=== PATIENT | female | born 1955 | race Caucasian/White ===

== ENCOUNTER 2017-12-02 01:15 | Inpatient (IN) | payer OTHER ==
[2017-12-02] VITALS (11 sets, daily range): BP systolic 126–145; BP diastolic 76–96; PULSE 54–94; TEMP 36.5–36.7; O2SAT 92–99; BMI 38.3
[~2017-12-02] VITALS: Ht 149.9 cm; Wt 84.1 kg
[2017-12-02] MEDS ORDERED: ASPI-435 PO (01:56)
[2017-12-02] MEDS ORDERED: ATOR-26 PO (01:57)
[2017-12-02] MEDS ORDERED: CHOL1TAB46 PO (01:57)
[2017-12-02] MEDS ORDERED: LISI-729 PO (01:58)
[2017-12-02] MEDS ORDERED: GLIM4TAB2 PO (01:58)
[2017-12-02] MEDS ORDERED: PRLSR20 PO (01:59)
[2017-12-02] MEDS ORDERED: METF1TAB53 PO (01:59)
[2017-12-02] MEDS ORDERED: B COCAP3 PO (02:03)
[2017-12-02] MEDS ORDERED: INSU1INJ41 SQ (02:03)
[2017-12-02] MEDS ORDERED: MAGN1TAB16 PO (02:03)
[2017-12-02] MEDS ORDERED: PROCHLORPERAZINE INJ 5 MG in SYRINGE 4 ML IV PRN (02:15)
[2017-12-02] MEDS ORDERED: TRAMADOL HCL 50 MG TAB PO PRN (02:15)
[2017-12-02] MEDS ORDERED: NITROGLYCERIN 0.4 MG SL PER TAB CHARGE SL PRN (02:15)
[2017-12-02] MEDS ORDERED: ACETAMINOPHEN 325 MG TAB PO PRN (02:15)
[2017-12-02] MEDS ORDERED: GLUCAGON FOR INJ 1 MG VIAL SQ PRN (02:15)
[2017-12-02] MEDS ORDERED: DEXTROSE 50% 50 ML SYR IV PRN (02:15)
[2017-12-02] MEDS ORDERED: GLUCOSE 40% GEL 15 GM TUBE PO PRN (02:15)
[2017-12-02] MEDS ORDERED: PHARMACIST DISCHARGE MED REC CONSULT PRN (02:15)
[2017-12-02] MEDS ORDERED: GLUCOSE 10 TABS/TUBE PO PRN (02:15)
[2017-12-02 02:27] LABS: HEMATOCRIT 41.6 % (37-47); HEMOGLOBIN 13.9 g/dL (12.0-16.0); MEAN CELL VOLUME 94.1 fL (80-100); MEAN CORPUSCULAR HEMOGLOBIN 31.4 pg (25-34); MEAN CORPUSCULAR HGB CONC 33.4 g/dl (32-36); MEAN PLATELET VOLUME 10.9 fL (7.4-10.4); PLATELET COUNT 281 K/uL (130-400); RED CELL DISTRIBUTION WIDTH CV 12.5 % (11.5-14.5); RED CELL DISTRIBUTION WIDTH SD 42.7 fL (36.4-46.3); WHITE BLOOD COUNT 8.86 K/uL (4.8-10.8)
[2017-12-02 02:36] LABS: PTT PATIENT 24.2 SECONDS (21.0-31.0)
[2017-12-02 02:41] LABS: CREATININE 1.09 mg/dl (0.60-1.20)
[2017-12-02 02:42] LABS: CALCIUM 9.8 mg/dl (8.5-10.1)
[2017-12-02] MEDS ORDERED: SODIUM CHLORIDE 0.9% 1000ML 1,000 ML IV ONE (02:45)
[2017-12-02 02:55] LABS: BASO % 0.2 %; BASO ABS # 0.02 K/uL (0-0.2); EOS % 1.8 %; EOS ABS # 0.16 K/uL (0-0.5); IG# 0.04 K/uL (0.00-0.02); LYMPH % 23.9 %; LYMPH ABS # 2.12 K/uL (1.2-3.4); MONO % 6.8 %; NEUT % 66.8 %; NEUT ABS # 5.92 K/uL (1.4-6.5)
[2017-12-02] MEDS ORDERED: INSULIN ASPART 100 UNITS/ML 3 ML PEN SC ONE (03:00)
[2017-12-02] MEDS ORDERED: INSULIN GLARGINE SOLOSTAR 100 UNITS/ML 3 ML PEN SC ONE ×2 (03:00→07:50)
[2017-12-02] MEDS ORDERED: CLOPIDOGREL BISULFATE 75 MG TAB PO ONE (03:00)
--- NOTE | 2017-12-02 03:05 | HISTORY & PHYSICAL EXAMINATION ---
DATE OF ADMISSION: 12/02/2017 PRIMARY CARE PHYSICIAN: Dr. Phillips. HISTORY OF PRESENT ILLNESS: History obtained from patient, and records. Patient is a fair historian. Medical history significant for hypertension, hyperlipidemia, DM2 insulin requiring, hx atrophic kidney right, mitral valve prolapse as per records, endometrial cancer status post surgery, chronic diarrhea, fatty liver disease as per records, atrophic right kidney as per records Last night around 8:00 p.m., patient had trouble talking, getting words out, some slurring as per . Patient also trying to figure out how to use her blood glucose monitor. Home BSG 200s. No chest pain, no shortness of breath, generalized headache symptoms different from migraine. Patient denies bladder symptoms. Patient brought to [facility]. Given ASA. Stroke alert called. Patient was not a candidate for TPA as per [facility] telestroke neurologist as per ER provider an NIH score of 1 and improving symptoms. Unable to transfer to tertiary center due to bed availability. Patient transferred to [facility] for Neurology services. MEDICAL HISTORY: As above. SURGERIES: She has had a hysterectomy, knee surgery, cholecystectomy, tonsillectomy, adenectomy, appendectomy. urologic procedures, bilateral tubal ligation, hernia repair. HOME MEDICATIONS: Include aspirin, atorvastatin, Cholecalciferol, glimepiride, lisinopril, omeprazole, vitamin B12, metformin, Soliqua. ALLERGIES: No known drug allergies. FAMILY HISTORY: Diabetes. PERSONAL AND SOCIAL HISTORY: Nonsmoker. No chronic intake of alcoholic beverages. Homemaker. REVIEW OF SYSTEMS: As per HPI. All 10 systems reviewed. All other ROS negative. PHYSICAL EXAMINATION: VITAL SIGNS: Blood pressure noted to be 130/80, pulse rate 78, RR 18, temperature 36.6, sats 98 on room air. GENERAL: Noted to be obese, comfortable, oriented, intermittently slow speech. SKIN: Normal, warm. HEENT: [place] palpebral conjunctivae. No ptosis. Dry buccal mucosa. NECK: Supple. No tenderness. CHEST: Clear to auscultation. No tenderness. HEART: Regular rate and rhythm. No murmur. ABDOMEN: Some distension, nontender. EXTREMITIES: No edema. No gross deformity. No tenderness. NEUROLOGIC: Coherent. No gross focality except for intermittent slow speech. Gait and stance not assessed, LABORATORY DATA: From [facility] December 01 hemoglobin was 15.3, hematocrit 45, white cell count 9.4. platelets 319. Sodium 135, potassium 4.2, chloride 98, CO2 28, BUN 22, creatinine 1.33, glucose was 211, calcium 10.4, AST 19, ALT 32, alkaline phosphatase 101. EKG as per my interpretation, no ischemia. CT head, no acute pathology, small vessel ischemic disease. ASSESSMENT: 1. Transient aphasia/apraxia symptoms Significant improvement from onset of symptoms last night Differentials include : Transient ischemic attack ? ASA failure Complicated migraine given headache symptoms hepatic encephalopathy, history of NAFLD. 2. HTN, slightly elevated 3. Hyperlipidemia on statin therapy 4. DM2, insulin requiring, unknown baseline blood sugars elevated at home as per patient 5. ARF, unknown duration History of right atrophic kidney 2 to infection as per patient account. 6. Hx uterine cancer sp surgery 7. Chronic diarrhea possible IBS PLAN: Observation PCU, neuro checks. Plavix for now for secondary stroke prevention until stroke definitely ruled out. Continue statin. MRI/MRA of the brain. Check lipid profile. May need additional stroke workup pending MRI results. Neurology consult RE transient aphasia, transient apraxia Check ammonia level. Permissive hypertension for now until stroke definitely ruled out Baseline UA, monitor creatinine response IV fluids, hold home RINA inhibitor until baseline established basal insulin, ISS BG goal 140-180. Check hemoglobin A1c. PT OT eval DVT prophylaxis, Lovenox subQ. Full code. Patient's requesting updates from providers. Mr. Rafi Parks at [phone]. MTDD
[2017-12-02 03:07] LABS: INR 0.9 (0.9-1.1)
[2017-12-02] MEDS ORDERED: PNEUMOCOCCAL ADMINISTRATION CHARGE ONE (05:30)
[2017-12-02] MEDS ORDERED: PNEUMOCOCCAL POLYSACCHARIDES 25 MCG/0.5 ML VIAL/SYR IM. ONE (05:30)
[2017-12-02] MEDS ORDERED: IV FLUIDS COMPLETED PRN (05:30)
[2017-12-02] MEDS ORDERED: HEPARIN SOD 5000 UNIT/0.5 ML CARP SQ SCH (06:00)
[2017-12-02 06:50] LABS: HEMOGLOBIN A1C 14.7 % (4.5-5.6)
[2017-12-02] MEDS: ATORVASTATIN 40 MG TAB PO SCH (08:33)
[2017-12-02] MEDS: PANTOprazole SOD 40 MG TAB PO SCH (08:33)
[2017-12-02] MEDS: ENOXAPARIN 40 MG/0.4 ML SYR SQ SCH (08:34)
[2017-12-02] MEDS: INSULIN ASPART 100 UNITS/ML 3 ML PEN SC SCH ×4 (08:37→21:00)
[2017-12-02] MEDS ORDERED: ASPIRIN 81 MG ECTAB PO ONE (09:30)
--- NOTE | 2017-12-02 09:45 | DIAGNOSTIC IMAGING REPORT ---
MRA HEAD WITHOUT CONTRAST HISTORY: 62 years-old Female Stroke - Attention to [place] acute strokelike symptoms with slurred speech COMPARISON: MRI brain of same day TECHNIQUE: MRA of the head was obtained without IV contrast utilizing 3-D [id number] sequencing and MIP reformats. All measurements were obtained according to NASCET criteria. FINDINGS: The bilateral internal carotid arteries are widely patent. The bilateral anterior and middle cerebral arteries are also widely patent and within normal limits. The anterior communicating artery is unremarkable. The bilateral vertebral arteries are patent. The basilar artery is patent and within normal limits. origin of the right posterior cerebral artery. Bilateral posterior cerebral arteries are widely patent. IMPRESSION: No aneurysm, dissection, high-grade stenosis or proximal branch occlusion. The above report was generated using voice recognition software. It may contain grammatical, syntax or spelling errors. Electronically signed by: Alvaro Concepcion M.D. 12/02/2017 9:44 AM Dictated Date/Time: 12/02/2017 9:40 AM
--- NOTE | 2017-12-02 10:05 | DIAGNOSTIC IMAGING REPORT ---
BRAIN WITHOUT CONTRAST HISTORY: 62 years-old Female Stroke acute strokelike symptoms COMPARISON: MRA of the head of same day TECHNIQUE: Multiplanar multisequence MRI of the brain was obtained without contrast. FINDINGS: The large [id number] industrial locomotive operator localizer images demonstrate no gross abnormality. There are 4 mm foci of cortically based restricted diffusion involving the posterior right frontal lobe as seen on images 17 and 18 of series 4 with intermediate signal on the ADC map suggesting acute or subacute lacunar infarctions. There is mildly increased T2 signal within this region as seen on image 18 series 5. There is no acute intracranial hemorrhage, midline shift, abnormal extra-axial collections, intracranial mass or hydrocephalus. There are a few scattered areas of mildly increased T2/FLAIR signal within the subcortical white matter of the cerebral hemispheres bilaterally suggesting minimal chronic microvascular ischemic changes. The midline structures including the corpus callosum, brainstem, optic chiasm, pituitary and pineal glands appear unremarkable the sagittal T1 series. No cerebellar tonsillar herniation. Degenerative changes of the cervical spine. Mastoid air cells are clear. Paranasal sinuses are also clear. Major flow voids at the level of the skull base appear patent. Orbits are unremarkable. Scalp, covering and soft tissues are within normal limits. IMPRESSION: 1. There are two 4 mm foci of restricted diffusion with mildly increased T2/FLAIR signal involving the posterior right frontal lobe suggesting acute to subacute lacunar infarctions. 2. No intracranial hemorrhage, significant mass effect or midline shift. The above report was generated using voice recognition software. It may contain grammatical, syntax or spelling errors. Electronically signed by: Alvaro Concepcion M.D. 12/02/2017 10:04 AM Dictated Date/Time: 12/02/2017 9:55 AM
--- NOTE | 2017-12-02 14:25 | Neurology Consultation ---
Neurology Consultation Date of Consultation: Dec 02, 2017. Attending Physician: Leonardo Bourgeois MD Primary Care Physician: Kassie Phillips MD Reason for Consultation: CVA History of Present Illness Source: patient, family, spouse Aleah is a 62 year old female with PMH HTN, DL, DM2 on insulin, atrophic kidney right, mitral valve prolapse, endometrial CA post surgery, chronic diarrhea, fatty liver disease. Around 8:00pm last night she started having difficulty with her words, and some slurring of speech. She checked her blood glucose and it was 200. She was taken to [facility] and given aspirin a stroke alert was called but she was not a candidate because the symptoms were resolving. NIH score of 1. They could not transfer her to a tertiary center due to bed availability so she was transferred to [facility]. Her states by the time she was at [facility] her symptoms were resolved. The only thing at this point he is noticing is that she is tired. denies CP, SOB, abdominal pain, one sided weakness, numbness tingling, swallowing issues, falls, vision changes, tinnitus or hearing loss. She was not compliant with her medications she was prescribed aspirin but didn't take it on a regular basis. Social History Smoking Status: Never smoker Smokeless Tobacco Use: No Alcohol Use: none Drug Use: none Marital Status: Housing Status: lives with family Allergies Coded Allergies: No Known Allergies (Unverified , 12/02/17) Current Inpatient Medications Current Inpatient Medications Medications (Trade) Dose Ordered Sig/Lam Route Start Time Stop Time Status Last Admin Dose Admin Sodium Chloride 1,000 ml @ 75 mls/hr [id number] ONCE IV 12/02/17 02:45 12/02/17 16:04 12/02/17 03:13 75 MLS/HR Acetaminophen (Tylenol Tab) 325 mg Q6H PRN PO 12/02/17 02:15 01/01/18 02:14 Nitroglycerin (Nitrostat Tab) 0.4 mg UD PRN SL 12/02/17 02:15 01/01/18 02:14 Insulin Aspart (novoLOG ASPART) SLIDING SCALE If C... ACHS SC 12/02/17 07:00 01/01/18 06:59 12/02/17 08:37 5 UNITS Glucose (Glucose 40% Gel) 15-30 GRAMS 15 GRAMS... UD PRN PO 12/02/17 02:15 01/01/18 02:14 Glucose (Glucose Chew Tab) 4-8 Tablets 4 Tabl... UD PRN PO 12/02/17 02:15 01/01/18 02:14 Dextrose (Dextrose 50% 50ML Syringe) 25-50ML OF 50% DW IV FOR... UD PRN IV 12/02/17 02:15 01/01/18 02:14 Glucagon (Glucagon Inj) 1 mg UD PRN SQ 12/02/17 02:15 01/01/18 02:14 Clopidogrel Bisulfate (plAVix TAB) 75 mg QAM PO 12/03/17 09:00 01/02/18 08:59 Miscellaneous Information (Pharmacist Discharge Med Rec Consult) 1 ea UD PRN N/A 12/02/17 02:15 01/01/18 02:14 Atorvastatin Calcium (Lipitor Tab) 80 mg DAILY PO 12/02/17 09:00 01/01/18 08:59 12/02/17 08:33 80 MG Pantoprazole Sodium (Protonix Tab) 40 mg QAM PO 12/02/17 09:00 01/01/18 08:59 12/02/17 08:33 40 MG Prochlorperazine Edisylate 5 mg/ Syringe 5 ml @ 5 mls/min Q6H PRN IV 12/02/17 02:15 01/01/18 02:14 Tramadol HCl (Ultram Tab) 25 mg Q6H PRN PO 12/02/17 02:15 01/01/18 02:14 12/02/17 03:13 25 MG Enoxaparin Sodium (Lovenox Inj) 40 mg QAM SQ 12/02/17 09:00 01/01/18 08:59 12/02/17 08:34 40 MG Miscellaneous (Iv Fluids Completed) 1 ea PRN PRN N/A 12/02/17 05:30 12/02/18 05:29 Insulin Glargine (Lantus Solostar Pen) 40 units DAILY SC 12/03/17 09:00 01/02/18 08:59 Aspirin (Ecotrin Tab) 81 mg DAILY PO 12/03/17 09:00 01/02/18 08:59 Physical Exam Vital Signs (Past 24 Hrs): Date Time Temp Pulse Resp B/P (MAP) Pulse Ox O2 Delivery O2 Flow Rate FiO2 12/02/17 12:15 36.7 66 18 139/81 (100) 92 Room Air 12/02/17 12:00 99 Room Air 12/02/17 08:34 36.7 76 20 130/85 (100) 94 Room Air 12/02/17 08:00 99 Room Air 12/02/17 04:09 36.7 94 17 129/79 (96) 95 Room Air 12/02/17 04:00 99 Room Air 12/02/17 01:14 36.6 77 16 145/96 (112) 99 Room Air 12/02/17 01:04 36.6 77 18 145/96 99 Room Air Physical Exam: Constitutional: appearance nourished, healthy and normal Ears, Nose, Mouth and Throat: mucous membranes moist, no injection and skin normal, eyes normal Cardiovascular: normal S-1 and S-2 and regular rate and rhythm Respiratory: clear to auscultation (CTA) and no rales, rhonchi or wheeze Musculoskeletal: no peripheral edema and good distal pulses Skin: no stigmata of neurocutaneous disease noted and normal and intact Eyes: extraocular muscles intact (EOMI) and pupils equal, round and reactive to light (PERRL) NEUROLOGIC EXAMINATION: Mental status: Alert and interactive Oriented to full date and location, 2018, [facility], no ifs ands or buts, sticks out tongue, closes eyes, point to ceiling with right hand Oriented to person Speech fluent with no evidence of aphasia Cranial Nerves smile and eye brow raise symmetric, tongue midline Reflexes: Deep tendon reflexes were symmetrical and graded 2/5. Plantar responses were flexor. Sensory: cool touch and vibration Coordination: Romberg absent Gait/Stance: Posture normal. Gait normal: with steady with steps, base, turning, heel and toe walking and tandem gait. Motor: Negative for pronator drift of out stretched arms with eyes closed. Strength: biceps triceps hand fish conservationist, bilaterally 5/5 hip flex plantar flex ext 5/5 Laboratory Results Past 24 Hours: 12/02/17 02:05 Red Blood Count 4.42, Mean Corpuscular Volume 94.1, Mean Corpuscular Hemoglobin 31.4, Mean Corpuscular Hemoglobin Concent 33.4, Mean Platelet Volume 10.9, Neutrophils (%) (Auto) 66.8, Lymphocytes (%) (Auto) 23.9, Monocytes (%) (Auto) 6.8, Eosinophils (%) (Auto) 1.8, Basophils (%) (Auto) 0.2, Neutrophils # (Auto) 5.92, Lymphocytes # (Auto) 2.12, Monocytes # (Auto) 0.60, Eosinophils # (Auto) 0.16, Basophils # (Auto) 0.02 12/02/17 02:05 Test 12/02/17 02:05 12/02/17 02:06 12/02/17 02:09 12/02/17 02:18 White Blood Count 8.86 K/uL (4.8-10.8) Red Blood Count 4.42 M/uL (4.2-5.4) Hemoglobin 13.9 g/dL (12.0-16.0) Hematocrit 41.6 % (37-47) Mean Corpuscular Volume 94.1 fL (80-100) Mean Corpuscular Hemoglobin 31.4 pg (25-34) Mean Corpuscular Hemoglobin Concent 33.4 g/dl (32-36) Platelet Count 281 K/uL (130-400) Mean Platelet Volume 10.9 fL (7.4-10.4) Neutrophils (%) (Auto) 66.8 % Lymphocytes (%) (Auto) 23.9 % Monocytes (%) (Auto) 6.8 % Eosinophils (%) (Auto) 1.8 % Basophils (%) (Auto) 0.2 % Neutrophils # (Auto) 5.92 K/uL (1.4-6.5) Lymphocytes # (Auto) 2.12 K/uL (1.2-3.4) Monocytes # (Auto) 0.60 K/uL (0.11-0.59) Eosinophils # (Auto) 0.16 K/uL (0-0.5) Basophils # (Auto) 0.02 K/uL (0-0.2) RDW Standard Deviation 42.7 fL (36.4-46.3) RDW Coefficient of Variation 12.5 % (11.5-14.5) Immature Granulocyte % (Auto) 0.5 % Immature Granulocyte # (Auto) 0.04 K/uL (0.00-0.02) Activated Partial Thromboplast Time 24.2 SECONDS (21.0-31.0) Partial Thromboplastin Ratio 0.9 Anion Gap 7.0 mmol/L (3-11) Est Creatinine Clear Calc Drug Dose 52.3 ml/min Estimated GFR () 63.9 Estimated GFR (Non- 55.1 BUN/Creatinine Ratio 26.2 (10-20) Calcium Level 9.8 mg/dl (8.5-10.1) Magnesium Level 1.9 mg/dl (1.8-2.4) Ammonia 14.0 umol/L (11-32) Triglycerides Level 410 mg/dl (0-150) Cholesterol Level 266 mg/dl (0-200) HDL Cholesterol 45 mg/dl LDL Cholesterol, Calculated mg/dl VLDL Cholesterol, Calculated mg/dl Cholesterol/HDL Ratio 5.9 Thyroid Stimulating Hormone (TSH) 1.430 uIu/ml (0.300-4.500) Ethyl Alcohol mg/dL < 3.0 mg/dl (0-3) Estimated Average Glucose 375 mg/dl Hemoglobin A1c 14.7 % (4.5-5.6) Prothrombin Time 9.5 SECONDS (9.0-12.0) Prothromb Time International Ratio 0.9 (0.9-1.1) Test 12/02/17 11:12 Bedside Glucose 113 mg/dl (70-90) Imaging MRI brain combo- There are two 4 mm foci of restricted diffusion with mildly increased T2/FLAIR signal involving the posterior right frontal lobe suggesting acute to subacute lacunar infarctions. No intracranial hemorrhage, significant mass effect or midline shift. MRA brain-No aneurysm, dissection, high-grade stenosis or proximal branch occlusion. Impression 62 year old female with PMH PMH HTN, DL, DM2 on insulin, atrophic kidney right, mitral valve prolapse, endometrial CA post surgery, chronic diarrhea, fatty liver disease. non complaint on medications- 2-4 mm foci posterior right frontal lobe stroke Plan 1. MRI - acute 2-4 mm stroke 2. start aspirin 81 mg plavix 75 mg x 3 months then aspirin for lifetime 3. must be compliant with medications 4. HTN, DL, DM optimize LDL < 70 currently >400 5. PT/OT speech -discharge needs -does not appear to have any current issues 6. TTE with bubble study and carotid doppler ordered 7. 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 Agree with above, consider ziopatch as outpt, but likely this is small vessel, NANCY Marrero MD
--- NOTE | 2017-12-02 16:39 | DIAGNOSTIC IMAGING REPORT ---
CAROTID DOPPLER NECK ART HISTORY: Mental status change ischemic event COMPARISON: None. TECHNIQUE: Real-time, grayscale, and color Doppler sonography of the carotid arteries was performed. Imaging reviewed in the transverse and longitudinal planes. All measurements were calculated based on NASCET criteria. FINDINGS: Antegrade flow is seen in the bilateral vertebral arteries. The brachial pressures are hemodynamically similar. The peak systolic velocity within the right ICA is 76. The right systolic ratio is 1.1. The peak systolic velocity within the left ICA is 86. The left systolic ratio is 1.0. IMPRESSION: No hemodynamically significant stenosis seen within the carotid arteries. The above report was generated using voice recognition software. It may contain grammatical, syntax or spelling errors. Electronically signed by: Solo Mendoza M.D. 12/02/2017 4:38 PM Dictated Date/Time: 12/02/2017 4:37 PM
--- NOTE | 2017-12-02 17:27 | ECHOCARDIOGRAM REPORT ---
*NOTICE TO RECEIVING DEMOCRAT AGENCY This information is strictly Confidential and protected under [place] law. [place] law prohibits you from making any further disclosure of this information unless further disclosure is expressly permitted by the written consent of the person to whom it pertains or is authorized by law. A general authorization for the release of medical or other information is not sufficient for this purpose. Hospital accepts no responsibility if the information is made available to any other person, INCLUDING THE PATIENT. Interpretation Summary * Name: PK MAY Study Date: 12/02/2017 02:45 PM BP: 139/81 mmHg * Patient Location: .2T\S\S237\S\1 HR: 66 * : 1955 (M/d/yyyy) Gender: Female Height: 59 in * Age: 62 yrs Ethnicity: CA Weight: 189 lb * Ordering Physician: Lisa Rios * Referring Physician: No Doctor, Assigned * Performed By: [facility] * * Reason For Study: Source of cerebral disturbance * BSA: 1.8 m2 * -- Conclusions -- * The left ventricle is normal in size. * There is mild concentric left ventricular hypertrophy. * Left ventricular systolic function is normal. * The left ventricular wall motion is normal. * Ejection Fraction = 60-65%. * Aortic valve sclerosis mild, without significant aortic valvular stenosis. * Mild aortic root dilatation. * Lipomatous hypertrophy of the interatrial septum is noted. * The interatrial septum is intact with no evidence for an atrial septal defect. * Injection of contrast documented no interatrial shunt. Procedure Details * A complete two-dimensional transthoracic echocardiogram was performed (2D, M-mode, Doppler and color flow Doppler). * A saline contrast injection was performed to assess for cardiac shunting. * The injection was performed through an intravenous line in the right arm. * The attending nurse who injected the saline contrast was Artis Humphreys RN. * A total of 30 cc of agitated saline was given. Left Ventricle * The left ventricle is normal in size. * There is mild concentric left ventricular hypertrophy. * Ejection Fraction = 60-65%. * Left ventricular systolic function is normal. * The left ventricular wall motion is normal. Right Ventricle * The right ventricle is normal in size and function. Atria * The left atrial size is normal. * Right atrial size is normal. * Lipomatous hypertrophy of the interatrial septum is noted. * The interatrial septum is intact with no evidence for an atrial septal defect. * Injection of contrast documented no interatrial shunt. Mitral Valve * The mitral valve anatomy is normal. * There is no mitral valve stenosis. * There is trace mitral regurgitation. Tricuspid Valve * The tricuspid valve anatomy is normal. * There is no tricuspid stenosis. * There is trace tricuspid regurgitation. Aortic Valve * The aortic valve is trileaflet. * Aortic valve sclerosis mild, without significant aortic valvular stenosis. * No aortic regurgitation is present. Pulmonic Valve * The pulmonic valve is not well visualized. Great Vessels * Mild aortic root dilatation. Pericardium/Pleural * There is no pericardial effusion. Great Vessels * Normal inferior vena cava diameter and respiratory variation suggests normal central venous pressure. Left Ventricular Diastolic Function * Diastolic dysfunction, Grade II (pseudonormalization pattern). MMode 2D Measurements and Calculations IVSd 1.0 cm IVSs 1.3 cm LVIDd 4.5 cm LVIDs 2.9 cm LVPWd 1.0 cm LVPWs 1.3 cm IVS/LVPW 0.98 FS 34.8 % EDV(Teich) 93.0 ml ESV(Teich) 33.3 ml EF(Teich) 64.2 % EDV(cubed) 91.8 ml ESV(cubed) 25.4 ml EF(cubed) 72.3 % % IVS thick 25.3 % % LVPW thick 28.7 % LV mass(C)d 159.8 grams LV mass(C)dI 88.7 grams/m\S\2 LV mass(C)s 121.8 grams LV mass(C)sI 67.6 grams/m\S\2 CO(Teich) 4.1 l/min CI(Teich) 2.3 l/min/m\S\2 SV(Teich) 59.6 ml SI(Teich) 33.1 ml/m\S\2 CO(cubed) 4.6 l/min CI(cubed) 2.5 l/min/m\S\2 SV(cubed) 66.4 ml SI(cubed) 36.9 ml/m\S\2 Ao root diam 4.0 cm Ao root area 12.3 cm\S\2 ACS 1.6 cm LA dimension 3.0 cm asc Aorta Diam 4.1 cm LA/Ao 0.75 LVAd ap4 26.1 cm\S\2 LVLd ap4 7.7 cm EDV(MOD-sp4) 72.6 ml LVAs ap4 13.9 cm\S\2 LVLs ap4 6.1 cm ESV(MOD-sp4) 27.0 ml EF(MOD-sp4) 62.8 % LVAd ap2 28.8 cm\S\2 LVLd ap2 7.6 cm EDV(MOD-sp2) 93.3 ml LVAs ap2 13.8 cm\S\2 LVLs ap2 6.1 cm ESV(MOD-sp2) 26.5 ml EF(MOD-sp2) 71.6 % CO(MOD-sp4) 3.1 l/min CI(MOD-sp4) 1.7 l/min/m\S\2 SV(MOD-sp4) 45.6 ml SI(MOD-sp4) 25.3 ml/m\S\2 CO(MOD-sp2) 4.6 l/min CI(MOD-sp2) 2.6 l/min/m\S\2 SV(MOD-sp2) 66.8 ml SI(MOD-sp2) 37.1 ml/m\S\2 Doppler Measurements and Calculations MV E max milla 72.3 cm/sec MV A max milla 68.9 cm/sec MV E/A 1.0 MV P1/2t max milla 89.2 cm/sec MV P1/2t 52.6 msec MVA(P1/2t) 4.2 cm\S\2 MV dec slope 496.7 cm/sec\S\2 MV dec time 0.21 sec Ao V2 max 114.0 cm/sec Ao max PG 5.2 mmHg Ao max PG (full) 1.4 mmHg LV V1 max PG 3.8 mmHg LV V1 max 97.3 cm/sec PA V2 max 83.6 cm/sec PA max PG 2.8 mmHg
--- NOTE | 2017-12-02 18:46 | Progress Note ---
Internal Med Progress Note Date of Service: Dec 02, 2017. Provider Documentation: SUBJECTIVE: resting comfortably speech is clear no swallowing issues no fevers no nausea no chest pain or sob hemodynamics stable OBJECTIVE: Vital Signs-as noted below Exam: General-alert and oriented. Not in distress ENT-normal hearing Neck-no neck masses Lungs-cta b/l no wheezing or crackles Heart-s1 and s2 heard regular rate and rhythm no murmurs Abdomen-soft bowel sounds present non tender no distension Extremities-no edema no erythema Neuro-alert and awake and orientated x3 speech clear non focal Lab data as noted below. ASSESSMENT & PLAN: 1. CVA presented with slurred speech mri shows 2-4mm subacute stroke in right posterior frontal region on aspirin. added Plavix continue home high dose Lipitor neurology consulted and appreciate inputs carotid Us unremarkable await echo speech evaluation ok pt/ot 2. HTN, holding home lisinopril for permissive htn. 3. Hyperlipidemia on statin therapy tg 410. 4. DM2, insulin requiring, poorly controlled hba1c 14.7 diabetes education will monitor close f/u with pcp. 5. ARF, unknown duration History of right atrophic kidney 2 to infection as per patient account. cr 1.09 today. 6. Hx uterine cancer sp surgery 7. Chronic diarrhea possible IBS DVT PROPHYLAXIS lovenox DISPOSITION pt/ot to be determined Vital Signs: Date Time Temp Pulse Resp B/P (MAP) Pulse Ox O2 Delivery O2 Flow Rate FiO2 12/02/17 16:00 99 Room Air 12/02/17 12:15 36.7 66 18 139/81 (100) 92 Room Air 12/02/17 12:00 99 Room Air 12/02/17 08:34 36.7 76 20 130/85 (100) 94 Room Air 12/02/17 08:00 99 Room Air 12/02/17 04:09 36.7 94 17 129/79 (96) 95 Room Air 12/02/17 04:00 99 Room Air 12/02/17 01:14 36.6 77 16 145/96 (112) 99 Room Air 12/02/17 01:04 36.6 77 18 145/96 99 Room Air Lab Results: Results Past 24 Hours Test 12/02/17 01:34 12/02/17 02:05 12/02/17 02:06 12/02/17 02:09 Range/Units Bedside Glucose 217 70-90 mg/dl White Blood Count 8.86 4.8-10.8 K/uL Red Blood Count 4.42 4.2-5.4 M/uL Hemoglobin 13.9 12.0-16.0 g/dL Hematocrit 41.6 37-47 % Mean Corpuscular Volume 94.1 80-100 fL Mean Corpuscular Hemoglobin 31.4 25-34 pg Mean Corpuscular Hemoglobin Concent 33.4 32-36 g/dl Platelet Count 281 130-400 K/uL Mean Platelet Volume 10.9 7.4-10.4 fL Neutrophils (%) (Auto) 66.8 % Lymphocytes (%) (Auto) 23.9 % Monocytes (%) (Auto) 6.8 % Eosinophils (%) (Auto) 1.8 % Basophils (%) (Auto) 0.2 % Neutrophils # (Auto) 5.92 1.4-6.5 K/uL Lymphocytes # (Auto) 2.12 1.2-3.4 K/uL Monocytes # (Auto) 0.60 0.11-0.59 K/uL Eosinophils # (Auto) 0.16 0-0.5 K/uL Basophils # (Auto) 0.02 0-0.2 K/uL RDW Standard Deviation 42.7 36.4-46.3 fL RDW Coefficient of Variation 12.5 11.5-14.5 % Immature Granulocyte % (Auto) 0.5 % Immature Granulocyte # (Auto) 0.04 0.00-0.02 K/uL Activated Partial Thromboplast Time 24.2 21.0-31.0 SECONDS Partial Thromboplastin Ratio 0.9 Sodium Level 134 136-145 mmol/L Potassium Level 4.0 3.5-5.1 mmol/L Chloride Level 99 98-107 mmol/L Carbon Dioxide Level 28 21-32 mmol/L Anion Gap 7.0 3-11 mmol/L Blood Urea Nitrogen 29 7-18 mg/dl Creatinine 1.09 0.60-1.20 mg/dl Est Creatinine Clear Calc Drug Dose 52.3 ml/min Estimated GFR () 63.9 Estimated GFR (Non- 55.1 BUN/Creatinine Ratio 26.2 10-20 Random Glucose 229 70-99 mg/dl Calcium Level 9.8 8.5-10.1 mg/dl Magnesium Level 1.9 1.8-2.4 mg/dl Ammonia 14.0 11-32 umol/L Triglycerides Level 410 0-150 mg/dl Cholesterol Level 266 0-200 mg/dl HDL Cholesterol 45 mg/dl LDL Cholesterol, Calculated mg/dl VLDL Cholesterol, Calculated mg/dl Cholesterol/HDL Ratio 5.9 Thyroid Stimulating Hormone (TSH) 1.430 0.300-4.500 uIu/ml Ethyl Alcohol mg/dL < 3.0 0-3 mg/dl Estimated Average Glucose 375 mg/dl Hemoglobin A1c 14.7 4.5-5.6 % Test 12/02/17 02:18 12/02/17 06:12 12/02/17 11:12 12/02/17 17:24 Range/Units Prothrombin Time 9.5 9.0-12.0 SECONDS Prothromb Time International Ratio 0.9 0.9-1.1 Bedside Glucose 196 113 141 70-90 mg/dl
[2017-12-03] VITALS (7 sets, daily range): BP systolic 136–160; BP diastolic 74–87; PULSE 59–103; TEMP 36.4–36.8; O2SAT 90–98; Ht 149.9 cm; Wt 84.1 kg
[2017-12-03 06:38] LABS: BASO % 0.2 %; BASO ABS # 0.01 K/uL (0-0.2); EOS % 3.3 %; EOS ABS # 0.21 K/uL (0-0.5); HEMATOCRIT 41.1 % (37-47); HEMOGLOBIN 13.6 g/dL (12.0-16.0); IG# 0.02 K/uL (0.00-0.02); LYMPH ABS # 2.55 K/uL (1.2-3.4); MEAN CELL VOLUME 94.9 fL (80-100); MEAN CORPUSCULAR HEMOGLOBIN 31.4 pg (25-34); MEAN CORPUSCULAR HGB CONC 33.1 g/dl (32-36); MEAN PLATELET VOLUME 10.9 fL (7.4-10.4); MONO % 6.6 %; MONO ABS # 0.42 K/uL (0.11-0.59); NEUT % 49.6 %; NEUT ABS # 3.16 K/uL (1.4-6.5); PLATELET COUNT 254 K/uL (130-400); RED CELL DISTRIBUTION WIDTH SD 44.7 fL (36.4-46.3); WHITE BLOOD COUNT 6.37 K/uL (4.8-10.8)
[2017-12-03] MEDS: INSULIN GLARGINE SOLOSTAR 100 UNITS/ML 3 ML PEN SC SCH (08:31)
[2017-12-03] MEDS: INSULIN ASPART 100 UNITS/ML 3 ML PEN SC SCH ×4 (08:31→20:47)
[2017-12-03] MEDS: CLOPIDOGREL BISULFATE 75 MG TAB PO SCH (08:32)
[2017-12-03] MEDS: ASPIRIN 81 MG ECTAB PO SCH (08:32)
[2017-12-03] MEDS: ATORVASTATIN 40 MG TAB PO SCH (08:32)
[2017-12-03] MEDS: PANTOprazole SOD 40 MG TAB PO SCH (08:32)
[2017-12-03] MEDS: ENOXAPARIN 40 MG/0.4 ML SYR SQ SCH (08:33)
[2017-12-03] MEDS ORDERED: INSULIN GLARGINE SOLOSTAR 100 UNITS/ML 3 ML PEN SC SCH (09:00)
--- NOTE | 2017-12-03 14:46 | Neurology Progress Notes ---
Neurology Progress Note Date of Service Dec 03, 2017. Brynn Bullard is a 62 year old female with PMH HTN, DL, DM2 on insulin, atrophic kidney right, mitral valve prolapse, endometrial CA post surgery, chronic diarrhea, fatty liver disease. Around 8:00pm last night she started having difficulty with her words, and some slurring of speech. She checked her blood glucose and it was 200. She was taken to [facility] and given aspirin a stroke alert was called but she was not a candidate because the symptoms were resolving. NIH score of 1. They could not transfer her to a tertiary center due to bed availability so she was transferred to [facility]. Her states by the time she was at [facility] her symptoms were resolved. The only thing at this point he is noticing is that she is tired. She was not compliant with her medications she was prescribed aspirin but didn't take it on a regular basis. today she is feeling fine. She is sitting bedside and discussing cholesterol and DM control to prevent stroke denies CP, SOB, abdominal pain, one sided weakness, numbness tingling, swallowing issues, falls, vision changes, tinnitus or hearing loss, slurred speech Objective Date Time Temp Pulse Resp B/P (MAP) Pulse Ox O2 Delivery O2 Flow Rate FiO2 12/03/17 12:07 36.6 64 18 144/85 (104) 96 Room Air 12/03/17 12:00 Room Air 12/03/17 08:00 Room Air 12/03/17 07:35 36.6 64 18 160/84 (109) 95 Room Air 12/03/17 04:00 Room Air 12/03/17 03:38 36.5 77 18 137/81 (99) 91 Room Air 12/03/17 00:01 Room Air 12/02/17 23:30 36.5 54 16 126/84 (98) 94 Room Air 12/02/17 20:00 Room Air 12/02/17 19:28 36.7 64 16 133/76 (95) 95 Room Air 12/02/17 16:00 99 Room Air Last 24 Hours Test 12/02/17 17:24 12/02/17 20:43 12/03/17 05:25 12/03/17 05:38 Bedside Glucose 141 mg/dl 146 mg/dl Urine Opiates Screen NEG Urine Methadone, Qualitative NEG Urine Barbiturates NEG Urine Phencyclidine (PCP) Level NEG Ur Amphetamine/Methamphetamine NEG MDMA (Ecstasy) Screen NEG Urine Benzodiazepines Screen NEG Urine Cocaine Metabolite NEG Urine Marijuana (THC) NEG Test 12/03/17 06:11 12/03/17 07:03 12/03/17 11:12 White Blood Count 6.37 K/uL Red Blood Count 4.33 M/uL Hemoglobin 13.6 g/dL Hematocrit 41.1 % Mean Corpuscular Volume 94.9 fL Mean Corpuscular Hemoglobin 31.4 pg Mean Corpuscular Hemoglobin Concent 33.1 g/dl Platelet Count 254 K/uL Mean Platelet Volume 10.9 fL Neutrophils (%) (Auto) 49.6 % Lymphocytes (%) (Auto) 40.0 % Monocytes (%) (Auto) 6.6 % Eosinophils (%) (Auto) 3.3 % Basophils (%) (Auto) 0.2 % Neutrophils # (Auto) 3.16 K/uL Lymphocytes # (Auto) 2.55 K/uL Monocytes # (Auto) 0.42 K/uL Eosinophils # (Auto) 0.21 K/uL Basophils # (Auto) 0.01 K/uL RDW Standard Deviation 44.7 fL RDW Coefficient of Variation 13.0 % Immature Granulocyte % (Auto) 0.3 % Immature Granulocyte # (Auto) 0.02 K/uL Bedside Glucose 140 mg/dl 165 mg/dl Imaging: carotid Doppler - No hemodynamically significant stenosis seen within the carotid arteries. Exam: Physical Exam: Constitutional: appearance nourished Ears, Nose, Mouth and Throat: mucous membranes moist, no injection and skin normal, eyes normal Cardiovascular: normal S-1 and S-2 and regular rate and rhythm Respiratory: clear to auscultation (CTA) and no rales, rhonchi or wheeze Musculoskeletal: no peripheral edema and good distal pulses Skin: no stigmata of neurocutaneous disease noted and normal and intact Eyes: extraocular muscles intact (EOMI) and pupils equal, round and reactive to light (PERRL) NEUROLOGIC EXAMINATION: Mental status: Alert and interactive Oriented to person, able to say no ifs ands or buts, Speech fluent with no evidence of aphasia Cranial Nerves smile eye brow raise symmetric Reflexes: Deep tendon reflexes were symmetrical and graded 2/5. Plantar responses were flexor. Coordination: finger to nose Gait/Stance: Posture sitting on bed side Motor: Negative for pronator drift of out stretched arms with eyes closed. Strength: sitting bedside and standing and walking in room Current Inpatient Medications Medications (Trade) Dose Ordered Sig/Lam Route Start Time Stop Time Status Last Admin Dose Admin Acetaminophen (Tylenol Tab) 325 mg Q6H PRN PO 12/02/17 02:15 01/01/18 02:14 12/03/17 00:34 325 MG Nitroglycerin (Nitrostat Tab) 0.4 mg UD PRN SL 12/02/17 02:15 01/01/18 02:14 Insulin Aspart (novoLOG ASPART) SLIDING SCALE If C... ACHS SC 12/02/17 07:00 01/01/18 06:59 12/03/17 12:21 1 UNITS Glucose (Glucose 40% Gel) 15-30 GRAMS 15 GRAMS... UD PRN PO 12/02/17 02:15 01/01/18 02:14 Glucose (Glucose Chew Tab) 4-8 Tablets 4 Tabl... UD PRN PO 12/02/17 02:15 01/01/18 02:14 Dextrose (Dextrose 50% 50ML Syringe) 25-50ML OF 50% DW IV FOR... UD PRN IV 12/02/17 02:15 01/01/18 02:14 Glucagon (Glucagon Inj) 1 mg UD PRN SQ 12/02/17 02:15 01/01/18 02:14 Clopidogrel Bisulfate (plAVix TAB) 75 mg QAM PO 12/03/17 09:00 01/02/18 08:59 12/03/17 08:32 75 MG Miscellaneous Information (Pharmacist Discharge Med Rec Consult) 1 ea UD PRN N/A 12/02/17 02:15 01/01/18 02:14 Atorvastatin Calcium (Lipitor Tab) 80 mg DAILY PO 12/02/17 09:00 01/01/18 08:59 12/03/17 08:32 80 MG Pantoprazole Sodium (Protonix Tab) 40 mg QAM PO 12/02/17 09:00 01/01/18 08:59 12/03/17 08:32 40 MG Prochlorperazine Edisylate 5 mg/ Syringe 5 ml @ 5 mls/min Q6H PRN IV 12/02/17 02:15 01/01/18 02:14 Tramadol HCl (Ultram Tab) 25 mg Q6H PRN PO 12/02/17 02:15 01/01/18 02:14 12/02/17 03:13 25 MG Enoxaparin Sodium (Lovenox Inj) 40 mg QAM SQ 12/02/17 09:00 01/01/18 08:59 12/03/17 08:33 40 MG Miscellaneous (Iv Fluids Completed) 1 ea PRN PRN N/A 12/02/17 05:30 12/02/18 05:29 Insulin Glargine (Lantus Solostar Pen) 40 units DAILY SC 12/03/17 09:00 01/02/18 08:59 12/03/17 08:31 40 UNITS Aspirin (Ecotrin Tab) 81 mg DAILY PO 12/03/17 09:00 01/02/18 08:59 12/03/17 08:32 81 MG Impression 62 year old female with PMH PMH HTN, DL, DM2 on insulin, atrophic kidney right, mitral valve prolapse, endometrial CA post surgery, chronic diarrhea, fatty liver disease. non complaint on medications- 2-4 mm foci posterior right frontal lobe stroke Plan 1. MRI - acute 2-4 mm stroke 2. start aspirin 81 mg plavix 75 mg x 3 months then aspirin for lifetime 3. must be compliant with medications 4. HTN, DL, DM optimize LDL < 70 currently >400 5. PT/OT speech -discharge needs -does not appear to have any current issues 6. TTE with bubble study and carotid doppler -no significant stenosis 7. development educator due to DM control issues- may need help from endocrine as outpatient 8. follow up with neurology Dr Lisa Marrero or Lisa Rios PAC schedule 9. will need to follow up with her PCP in [place] and endocrine/nurse education DM for better control I have seen and discussed above patient with Dr Lisa Marrero, neurology Pt seen see above,should also have a cardionet or ziopatch as outpt. NANCY Marrero MD
[2017-12-03] MEDS ORDERED: PLV75 PO (17:16)
[2017-12-03] MEDS ORDERED: INSU1INJ41 SQ (17:16)
--- NOTE | 2017-12-03 17:20 | Discharge Instructions ---
Discharge Instructions Date of Service Dec 03, 2017. Admission Reason for Admission: Confusion Discharge Discharge Diagnosis / Problem: CVA Discharge Goals Goal(s): Decrease discomfort, Improve function Activity Recommendations Activity Limitations: resume your previous activity . Instructions / Follow-Up Instructions / Follow-Up FOLLOWUP WITH FAMILY DOCTOR IN ONE WEEK. INCREASED SOLIQUA 100/33 TO 30 UNITS DAILY NEW MEDICATION: PLAVIX 75MG PO DAILY FOR 3 MONTHS AND THEN STOP. NEW MEDICATION : TRICOR 54MG PO DAILY( FOR HIGH TRIGLYCERIDES). CHANGING MEDICATION PRILOSEC TO PROTONIX PRILOSEC CAN NEGATE EFFECTS OF PLAVIX. TO CHECK BLOOD SUGARS TWO TO THREE TIMES DAILY AT BEFORE BREAKFAST, LUNCH, DINNER AND BEFORE GOING TO SLEEP AND WRITE THE READINGS IN A BOOK AND TO SHOW THEM TO FAMILY DOCTOR FOR FURTHER ADJUSTMENTS OF DIABETIC MEDICATIONS. MAY NEED ENDOCRINE REFERRAL BY FAMILY DOCTOR FOR DIABETES MANAGEMENT. FOLLOW UP WITH FAMILY DOCTOR FOR HIGH TRIGLYCERIDE LEVELS( 410). HEART MONITOR PER FAMILY DOCTOR TO DETECT ANY IRREGULAR HEART RATES. SLEEP STUDY PER FAMILY DOCTOR Risk Factors for Stroke: You can reduce your chances of stroke by working with your medical provider to adopt a healthy lifestyle. Some specific ways to lower your chance of stroke are: * If you are a smoker, now is the time to stop smoking cigarettes * If you are diabetic, improve the control of your blood sugars * Avoid excessive amounts of alcohol * Control high blood pressure * Lose weight if you are overweight * Be sure to lead an active lifestyle * Eat a healthy diet low in salt, cholesterol and fat You should know about other risk factors for stroke that you are unable to control. These include: * Age 55 years or older * Male gender * Certain racial groups: , or / * Family History of Stroke, Mini stroke or Heart Attack * Sickle Cell Disease Follow Up: It is important for you to keep your follow up appointments with your medical provider. Current Hospital Diet Patient's current hospital diet: Diabetes Type 2 Diet, Low Lactose Diet Discharge Diet Recommended Diet: Diabetes Type 2 Diet, Low Lactose Diet Pending Studies Studies pending at discharge: no Laboratory Results Hemoglobin A1c Test 12/02/17 02:06 Range/Units Estimated Average Glucose 375 mg/dl Hemoglobin A1c 14.7 H 4.5-5.6 % Lipid Panel Test 12/02/17 02:05 Range/Units Triglycerides Level 410 H 0-150 mg/dl Cholesterol Level 266 H 0-200 mg/dl HDL Cholesterol 45 mg/dl Cholesterol/HDL Ratio 5.9 LDL Cholesterol, Calculated mg/dl Medical Emergencies . Who to Call and When: Medical Emergencies: Call 911 immediately if you experience any of the following warning signs and symptoms of Stroke: * Sudden numbness or weakness of the face, arm or leg, especially on one side of the body * Sudden confusion, trouble speaking or understanding * Sudden trouble seeing in one or both eyes * Sudden trouble walking, dizziness, loss of balance or coordination * Sudden severe headache with no cause Do not delay calling 911 if you experience any warning signs or symptoms of a stroke. Delay in seeking medical attention may affect what treatments can be given to you. . Non-Emergent Contact Non-Emergency issues call your: Primary Care Provider . . "Provider Documentation" section prepared by Leonardo Bourgeois. . Stroke Core Measures Reason no t-PA for Stroke: Treatment not indicated Reason no antithrom by day 2: Treatment provided - N/A Reason no antithrom at D/C: Treatment provided - N/A Reason no statin at D/C: Treatment provided - N/A Reason no anticoag w/a fib: Treatment not indicated VTE Core Measure Inpt VTE Proph given/why not?: Enoxaparin (Lovenox)SQ
--- NOTE | 2017-12-03 18:38 | Progress Note ---
Internal Med Progress Note Date of Service: Dec 03, 2017. Provider Documentation: SUBJECTIVE: speech normal no issues with swallowing ambulating fine eating ok no sob planned for discharge but at time of discharge had a transient episode of lip numbness OBJECTIVE: Vital Signs-as noted below Exam: General-alert and oriented. Not in distress ENT-normal hearing Neck-no neck masses Lungs-cta b/l no wheezing or crackles Heart-s1 and s2 heard regular rate and rhythm no murmurs Abdomen-soft bowel sounds present non tender no distension Extremities-no edema no erythema Neuro-alert and awake and orientated x3 speech clear non focal Lab data as noted below. ASSESSMENT & PLAN: 1. CVA presented with slurred speech mri shows 2-4mm subacute stroke in right posterior frontal region on aspirin. added Plavix continue home high dose Lipitor neurology consulted and appreciate inputs carotid Us unremarkable echo unremarkable speech evaluation ok pt/ot repeating ct head for transient lip numbness 2. HTN, holding home lisinopril for permissive htn. 3. Hyperlipidemia on statin therapy tg 410. 4. DM2, insulin requiring, poorly controlled hba1c 14.7 diabetes education will monitor plan to d/c on increased dose of soliqua close f/u with pcp. 5. ARF, unknown duration History of right atrophic kidney 2 to infection as per patient account. cr 1.09 today. 6. Hx uterine cancer sp surgery 7. Chronic diarrhea possible IBS DVT PROPHYLAXIS lovenox DISPOSITION pt/ot possible d/c in am if stable Vital Signs: Date Time Temp Pulse Resp B/P (MAP) Pulse Ox O2 Delivery O2 Flow Rate FiO2 12/03/17 17:33 36.4 68 16 98 Room Air 12/03/17 16:40 36.4 68 16 136/83 (100) 98 Room Air 12/03/17 16:31 Room Air 12/03/17 12:07 36.6 64 18 144/85 (104) 96 Room Air 12/03/17 12:00 Room Air 12/03/17 08:00 Room Air 12/03/17 07:35 36.6 64 18 160/84 (109) 95 Room Air 12/03/17 04:00 Room Air 12/03/17 03:38 36.5 77 18 137/81 (99) 91 Room Air 12/03/17 00:01 Room Air 12/02/17 23:30 36.5 54 16 126/84 (98) 94 Room Air 12/02/17 20:00 Room Air 12/02/17 19:28 36.7 64 16 133/76 (95) 95 Room Air Lab Results: Results Past 24 Hours Test 12/02/17 20:43 12/03/17 05:25 12/03/17 06:11 12/03/17 07:03 Range/Units Bedside Glucose 146 140 70-90 mg/dl Urine Opiates Screen NEG NEG Urine Methadone, Qualitative NEG NEG Urine Barbiturates NEG NEG Urine Phencyclidine (PCP) Level NEG NEG Ur Amphetamine/Methamphetamine NEG NEG MDMA (Ecstasy) Screen NEG NEG Urine Benzodiazepines Screen NEG NEG Urine Cocaine Metabolite NEG NEG Urine Marijuana (THC) NEG NEG White Blood Count 6.37 4.8-10.8 K/uL Red Blood Count 4.33 4.2-5.4 M/uL Hemoglobin 13.6 12.0-16.0 g/dL Hematocrit 41.1 37-47 % Mean Corpuscular Volume 94.9 80-100 fL Mean Corpuscular Hemoglobin 31.4 25-34 pg Mean Corpuscular Hemoglobin Concent 33.1 32-36 g/dl Platelet Count 254 130-400 K/uL Mean Platelet Volume 10.9 7.4-10.4 fL Neutrophils (%) (Auto) 49.6 % Lymphocytes (%) (Auto) 40.0 % Monocytes (%) (Auto) 6.6 % Eosinophils (%) (Auto) 3.3 % Basophils (%) (Auto) 0.2 % Neutrophils # (Auto) 3.16 1.4-6.5 K/uL Lymphocytes # (Auto) 2.55 1.2-3.4 K/uL Monocytes # (Auto) 0.42 0.11-0.59 K/uL Eosinophils # (Auto) 0.21 0-0.5 K/uL Basophils # (Auto) 0.01 0-0.2 K/uL RDW Standard Deviation 44.7 36.4-46.3 fL RDW Coefficient of Variation 13.0 11.5-14.5 % Immature Granulocyte % (Auto) 0.3 % Immature Granulocyte # (Auto) 0.02 0.00-0.02 K/uL Test 12/03/17 10:35 12/03/17 11:12 Range/Units Urine Color YELLOW Urine Appearance CLEAR CLEAR Urine pH 6.0 4.5-7.5 Urine Specific [place] 1.011 1.000-1.030 Urine Protein 3+ NEG Urine Glucose (UA) 2+ NEG Urine Ketones NEG NEG Urine Occult Blood NEG NEG Urine Nitrite NEG NEG Urine Bilirubin NEG NEG Urine Urobilinogen NEG NEG Urine Leukocyte Esterase TRACE NEG Urine WBC (Auto) 1-5 0-5 /hpf Urine RBC (Auto) 0-4 0-4 /hpf Urine Hyaline Casts (Auto) 0 0-5 /lpf Urine Epithelial Cells (Auto) 10-20 0-5 /lpf Urine Bacteria (Auto) NEG NEG Bedside Glucose 165 70-90 mg/dl
--- NOTE | 2017-12-03 22:17 | DIAGNOSTIC IMAGING REPORT ---
CT OF THE HEAD WITHOUT CONTRAST CLINICAL HISTORY: Confusion. Possible cerebrovascular accident. COMPARISON STUDY: MRI of the brain December 02, 2017. CT DOSE: 537.48 mGy.cm TECHNIQUE: Helical axial images of the head were obtained without IV contrast. Automated exposure control was utilized for the study. A dose lowering technique was utilized adhering to the principles of ALARA. FINDINGS: No acute intracranial hemorrhage, midline shift or mass effect is present. Brain volume is normal. Ventricular system is normal. Basilar cisterns are patent. There are no extra-axial collections. Kumar-white differentiation is maintained. There are no findings to suggest acute dural sinus thrombosis or acute territorial infarct. The small acute to subacute infarcts within the posterior right frontal lobe shown on prior MRI are not evident on this exam, likely due to technique. There are no significant calvarial abnormalities. IMPRESSION: 1. No acute intracranial findings. 2. The small acute to subacute infarcts within the posterior right frontal lobe shown on prior MRI are not evident on this exam, likely due to technique. Electronically signed by: Pavan Nazario M.D. 12/03/2017 10:16 PM Dictated Date/Time: 12/03/2017 10:14 PM
[2017-12-04 03:33] VITALS: BP 153/87; PULSE 63; TEMP 36.5; O2SAT 98
[2017-12-04] MEDS: INSULIN ASPART 100 UNITS/ML 3 ML PEN SC SCH ×2 (07:00→12:17)
[2017-12-04] MEDS: PANTOprazole SOD 40 MG TAB PO SCH (07:44)
[2017-12-04] MEDS: ASPIRIN 81 MG ECTAB PO SCH (07:44)
[2017-12-04] MEDS: CLOPIDOGREL BISULFATE 75 MG TAB PO SCH (07:44)
[2017-12-04] MEDS: ATORVASTATIN 40 MG TAB PO SCH (07:44)
[2017-12-04] MEDS: ENOXAPARIN 40 MG/0.4 ML SYR SQ SCH (07:45)
[2017-12-04] MEDS: INSULIN GLARGINE SOLOSTAR 100 UNITS/ML 3 ML PEN SC SCH (07:48)
[2017-12-04 08:06] VITALS: BP 147/94; PULSE 67; TEMP 37; O2SAT 99
[2017-12-04 10:53] VITALS: BP 135/87; PULSE 67; TEMP 36.9; O2SAT 95
[2017-12-04] MEDS ORDERED: FENO54TA PO (15:09)
[2017-12-04] MEDS ORDERED: PLV75 PO (15:09)
[2017-12-04] MEDS ORDERED: INSU1INJ41 SQ (15:09)
[2017-12-04] MEDS ORDERED: PRT40 PO (15:41)
--- NOTE | 2017-12-04 16:09 | Pharmacy Progress Note ---
Pharmacist Stroke Counseling Date of Service Dec 04, 2017. Scope Pharmacy has been consulted to provide medication discharge counseling for this patient admitted with ischemic stroke/hemorrhagic stroke/ transient ischemic attack as per the Pharmacist Discharge Counseling for Stroke Patients Protocol. Medications on Discharge Medications Dose Route/Sig Max Daily Dose Days Date Category Pantoprazole Sodium (Pantoprazole) 40 Mg Tab 40 Mg PO QAM 12/04/17 Rx Tricor (Fenofibrate) 54 Mg Tab 54 Mg PO DAILY 30 12/04/17 Rx Clopidogrel (Clopidogrel Bisulfate) 75 Mg Tab 75 Mg PO QAM 12/04/17 Rx Soliqua 100/33 100-33 Unt-Mcg/ml (Insulin Glargine-Lixisenatide) 1 Inj Inj 30 Units SQ DAILY 12/04/17 Rx Vitamin B Complex-C (B Complex W/ C) 1 Cap Cap 1 Cap PO DAILY 12/02/17 Reported Chelated Magnesium (Magnesium) 100 Mg Tab 100 Mg PO DAILY 12/02/17 Reported Glucophage Ext Rel (Metformin Hcl) 1,000 Mg Tab 1,000 Mg PO BID 12/02/17 Reported Prinivil (Lisinopril) 5 Mg Tab 5 Mg PO DAILY 12/02/17 Reported Glimepiride 4 Mg Tab 8 Mg PO DAILY 12/02/17 Reported Vitamin D3 (Cholecalciferol) 5,000 Unit Tab 5,000 Unit PO DAILY 12/02/17 Reported Lipitor (Atorvastatin Calcium) 80 Mg Tab 80 Mg PO DAILY 12/02/17 Reported Aspirin 81 (Aspirin) 81 Mg Tab 81 Mg PO DAILY 12/02/17 Reported Action The above medications, specifically ones for stroke treatment/prophylaxis, have been reviewed in detail with the patient and/or patient sales representative metals(s) prior to discharge. This includes indication, common adverse reactions, drug interactions, and medication administration. Medication counseling has been employed using the teach-back method to ensure understanding. Outcome The patient and/or patient sales representative metals(s) have demonstrated understanding of the medications. Please note, they are aware that the pharmacist will call them within 72 hours post-discharge to confirm that the appropriate medications are being taken and answer any further medication related questions the patient might have at that time. Contact information Individual to be contacted: patient Phone number: [phone] Best time to call: morning Additional comments: I reminded that patient that she is prescribed Plavix for 3 months only but will continue aspirin chronically. Prior to admission, patient used omeprazole for GERD. I explained to Aleah that while she is on Plavix it is preferred to use pantoprazole due to its drug interaction with omeprazole. Aleah stated that she is uncertain she needs to continue a medication for GERD due to symptom improvement. I recommended only using as needed and briefly reviewed some of the adverse effects associated with proton pump inhibitors. Thank you for allowing pharmacy to be involved in the care of this patient. Please call [phone] or [phone] with any additional questions
--- NOTE | 2017-12-04 18:30 | Progress Note ---
Internal Med Progress Note Date of Service: Dec 04, 2017. Provider Documentation: SUBJECTIVE: had an episode of upper lip numbness yesterday evening which only lasted very brief moment and no more episodes since then speech normal no issues with swallowing resting comfortably afebrile no nausea ok for discharge OBJECTIVE: Vital Signs-as noted below Exam: General-alert and oriented. Not in distress ENT-normal hearing Neck-no neck masses Lungs-cta b/l no wheezing or crackles Heart-s1 and s2 heard regular rate and rhythm no murmurs Abdomen-soft bowel sounds present non tender no distension Extremities-no edema no erythema Neuro-alert and awake and orientated x3 speech clear non focal Lab data as noted below. ASSESSMENT & PLAN: 1. CVA presented with slurred speech mri shows 2-4mm subacute stroke in right posterior frontal region on aspirin. added Plavix continue home high dose Lipitor neurology consulted and appreciate inputs carotid Us unremarkable echo unremarkable speech evaluation ok pt/ot repeating ct head for transient lip numbness- was unremarkable and no more episodes plan to continue aspirin and plavbix for 3 months and then stop Plavix and continue aspirin also added TriCor as triglycerides level 410. 2. HTN, holding home lisinopril for permissive htn. restarted at discharge 3. Hyperlipidemia on statin therapy tg 410.added tricor 4. DM2, insulin requiring, poorly controlled hba1c 14.7 diabetes education will monitor plan to d/c on increased dose of soliqua close f/u with pcp. 5. ARF, unknown duration History of right atrophic kidney 2 to infection as per patient account. cr 1.09 today. 6. Morbid obesity sleep study as per PCP 7. Hx uterine cancer sp surgery 8. Chronic diarrhea possible IBS discharged home Vital Signs: Date Time Temp Pulse Resp B/P (MAP) Pulse Ox O2 Delivery O2 Flow Rate FiO2 12/04/17 12:00 Room Air 12/04/17 10:53 36.9 67 20 135/87 (103) 95 Room Air 12/04/17 08:06 37.0 67 20 147/94 (111) 99 Room Air 12/04/17 08:00 Room Air 12/04/17 04:00 Room Air 12/04/17 03:33 36.5 63 18 153/87 (109) 98 Room Air 12/03/17 23:59 Room Air 12/03/17 23:48 36.8 59 18 145/87 (106) 90 Room Air 12/03/17 20:08 Room Air 12/03/17 20:08 36.8 69 20 145/80 (101) 95 Room Air Lab Results: Results Past 24 Hours Test 12/03/17 20:45 12/04/17 06:57 12/04/17 10:52 Range/Units Bedside Glucose 111 105 144 70-90 mg/dl
--- NOTE | 2017-12-04 18:50 | Discharge Summary ---
Discharge Summary Date of Service Dec 04, 2017. Discharge Summary Admission Date: Dec 02, 2017 at 15:40 Discharge Date: Dec 04, 2017 Discharge Disposition: Home Principal Diagnosis: CVA Secondary Diagnoses/Problems: for hypertension, hyperlipidemia, DM2 insulin requiring, hx atrophic kidney right, mitral valve prolapse as per records, endometrial cancer status post surgery, chronic diarrhea, fatty liver disease as per records, atrophic right kidney Procedures: MRA HEAD: No aneurysm, dissection, high-grade stenosis or proximal branch occlusion. BRAIN MRI: 1. There are two 4 mm foci of restricted diffusion with mildly increased T2/FLAIR signal involving the posterior right frontal lobe suggesting acute to subacute lacunar infarctions. 2. No intracranial hemorrhage, significant mass effect or midline shift. CAROTID US: No hemodynamically significant stenosis seen within the carotid arteries. CT HEAD: 1. No acute intracranial findings. 2. The small acute to subacute infarcts within the posterior right frontal lobe shown on prior MRI are not evident on this exam, likely due to technique. ECHO: The left ventricle is normal in size. * There is mild concentric left ventricular hypertrophy. * Left ventricular systolic function is normal. * The left ventricular wall motion is normal. * Ejection Fraction = 60-65%. * Aortic valve sclerosis mild, without significant aortic valvular stenosis. * Mild aortic root dilatation. * Lipomatous hypertrophy of the interatrial septum is noted. * The interatrial septum is intact with no evidence for an atrial septal defect. * Injection of contrast documented no interatrial shunt. Consultations: NEUROLOGY Medication Reconciliation New Medications: Fenofibrate (Tricor) 54 Mg Tab 54 MG PO DAILY for 30 Days, #30 TAB 2 Refills Clopidogrel Bisulfate (Clopidogrel) 75 Mg Tab 75 MG PO QAM, #30 TAB 2 Refills Pantoprazole (Pantoprazole Sodium) 40 Mg Tab 40 MG PO QAM, #30 TAB 2 Refills Continued Medications: Aspirin (Aspirin 81) 81 Mg Tab 81 MG PO DAILY Atorvastatin (Lipitor) 80 Mg Tab 80 MG PO DAILY, TAB B Complex W/ C (Vitamin B Complex-C) 1 Cap Cap 1 CAP PO DAILY Cholecalciferol (Vitamin D3) 5,000 Unit Tab 5000 UNIT PO DAILY Glimepiride (Glimepiride) 4 Mg Tab 8 MG PO DAILY, TAB 3 Refills Insulin Glargine-Lixisenatide (Soliqua 100/33 100-33 Unt-Mcg/ml) 1 Inj Inj 30 UNITS SQ DAILY, #1 PEN (This prescription has been renewed) Lisinopril (Prinivil) 5 Mg Tab 5 MG PO DAILY, TAB Magnesium (Chelated Magnesium) 100 Mg Tab 100 MG PO DAILY Metformin Hcl (Glucophage Ext Rel) 1,000 Mg Tab 1000 MG PO BID, TAB Discontinued Medications: Omeprazole (Prilosec) 20 Mg Capcr 20 MG PO DAILY, CAP Admission Information HPI (per Admitting provider): History obtained from patient, and records. Patient is a fair historian. Medical history significant for hypertension, hyperlipidemia, DM2 insulin requiring, hx atrophic kidney right, mitral valve prolapse as per records, endometrial cancer status post surgery, chronic diarrhea, fatty liver disease as per records, atrophic right kidney as per records Last night around 8:00 p.m., patient had trouble talking, getting words out, some slurring as per . Patient also trying to figure out how to use her blood glucose monitor. Home BSG 200s. No chest pain, no shortness of breath, generalized headache symptoms different from migraine. Patient denies bladder symptoms. Patient brought to [facility]. Given ASA. Stroke alert called. Patient was not a candidate for TPA as per [facility] telestroke neurologist as per ER provider an NIH score of 1 and improving symptoms. Unable to transfer to tertiary center due to bed availability. Patient transferred to [facility] for Neurology services. Physical Exam (per Admitting): VITAL SIGNS: Blood pressure noted to be 130/80, pulse rate 78, RR 18, temperature 36.6, sats 98 on room air. GENERAL: Noted to be obese, comfortable, oriented, intermittently slow speech. SKIN: Normal, warm. HEENT: [place] palpebral conjunctivae. No ptosis. Dry buccal mucosa. NECK: Supple. No tenderness. CHEST: Clear to auscultation. No tenderness. HEART: Regular rate and rhythm. No murmur. ABDOMEN: Some distension, nontender. EXTREMITIES: No edema. No gross deformity. No tenderness. NEUROLOGIC: Coherent. No gross focality except for intermittent slow speech. Gait and stance not assessed, Hospital Course 1. CVA presented with slurred speech mri shows 2-4mm subacute stroke in right posterior frontal region on aspirin. added Plavix continue home high dose Lipitor neurology consulted and appreciate inputs carotid Us unremarkable echo unremarkable speech evaluation ok pt/ot repeating ct head for transient lip numbness- was unremarkable and no more episodes plan to continue aspirin and plavbix for 3 months and then stop Plavix and continue aspirin also added TriCor as triglycerides level 410. 2. HTN, holding home lisinopril for permissive htn. restarted at discharge 3. Hyperlipidemia on statin therapy tg 410.added tricor 4. DM2, insulin requiring, poorly controlled hba1c 14.7 diabetes education will monitor plan to d/c on increased dose of soliqua close f/u with pcp. 5. ARF, unknown duration History of right atrophic kidney 2 to infection as per patient account. cr 1.09 today. 6. Morbid obesity sleep study as per PCP 7. Hx uterine cancer sp surgery 8. Chronic diarrhea possible IBS discharged home Total time spent on discharge = 40MINUTES This includes examination of the patient, discharge planning, medication reconciliation, and communication with other providers. Discharge Instructions Discharge Instructions Date of Service Dec 03, 2017. Admission Reason for Admission: Confusion Discharge Discharge Diagnosis / Problem: CVA Discharge Goals Goal(s): Decrease discomfort, Improve function Activity Recommendations Activity Limitations: resume your previous activity . Instructions / Follow-Up Instructions / Follow-Up FOLLOWUP WITH FAMILY DOCTOR IN ONE WEEK. INCREASED SOLIQUA 100/33 TO 30 UNITS DAILY NEW MEDICATION: PLAVIX 75MG PO DAILY FOR 3 MONTHS AND THEN STOP. NEW MEDICATION : TRICOR 54MG PO DAILY( FOR HIGH TRIGLYCERIDES). CHANGING MEDICATION PRILOSEC TO PROTONIX PRILOSEC CAN NEGATE EFFECTS OF PLAVIX. TO CHECK BLOOD SUGARS TWO TO THREE TIMES DAILY AT BEFORE BREAKFAST, LUNCH, DINNER AND BEFORE GOING TO SLEEP AND WRITE THE READINGS IN A BOOK AND TO SHOW THEM TO FAMILY DOCTOR FOR FURTHER ADJUSTMENTS OF DIABETIC MEDICATIONS. MAY NEED ENDOCRINE REFERRAL BY FAMILY DOCTOR FOR DIABETES MANAGEMENT. FOLLOW UP WITH FAMILY DOCTOR FOR HIGH TRIGLYCERIDE LEVELS( 410). HEART MONITOR PER FAMILY DOCTOR TO DETECT ANY IRREGULAR HEART RATES. SLEEP STUDY PER FAMILY DOCTOR Risk Factors for Stroke: You can reduce your chances of stroke by working with your medical provider to adopt a healthy lifestyle. Some specific ways to lower your chance of stroke are: * If you are a smoker, now is the time to stop smoking cigarettes * If you are diabetic, improve the control of your blood sugars * Avoid excessive amounts of alcohol * Control high blood pressure * Lose weight if you are overweight * Be sure to lead an active lifestyle * Eat a healthy diet low in salt, cholesterol and fat You should know about other risk factors for stroke that you are unable to control. These include: * Age 55 years or older * Male gender * Certain racial groups: , or / * Family History of Stroke, Mini stroke or Heart Attack * Sickle Cell Disease Follow Up: It is important for you to keep your follow up appointments with your medical provider. Current Hospital Diet Patient's current hospital diet: Diabetes Type 2 Diet, Low Lactose Diet Discharge Diet Recommended Diet: Diabetes Type 2 Diet, Low Lactose Diet Pending Studies Studies pending at discharge: no Laboratory Results Hemoglobin A1c Test 12/02/17 02:06 Range/Units Estimated Average Glucose 375 mg/dl Hemoglobin A1c 14.7 H 4.5-5.6 % Lipid Panel Test 12/02/17 02:05 Range/Units Triglycerides Level 410 H 0-150 mg/dl Cholesterol Level 266 H 0-200 mg/dl HDL Cholesterol 45 mg/dl Cholesterol/HDL Ratio 5.9 LDL Cholesterol, Calculated mg/dl Medical Emergencies . Who to Call and When: Medical Emergencies: Call 911 immediately if you experience any of the following warning signs and symptoms of Stroke: * Sudden numbness or weakness of the face, arm or leg, especially on one side of the body * Sudden confusion, trouble speaking or understanding * Sudden trouble seeing in one or both eyes * Sudden trouble walking, dizziness, loss of balance or coordination * Sudden severe headache with no cause Do not delay calling 911 if you experience any warning signs or symptoms of a stroke. Delay in seeking medical attention may affect what treatments can be given to you. . Non-Emergent Contact Non-Emergency issues call your: Primary Care Provider . . "Provider Documentation" section prepared by Leonardo Bourgeois. . Stroke Core Measures Reason no t-PA for Stroke: Treatment not indicated Reason no antithrom by day 2: Treatment provided - N/A Reason no antithrom at D/C: Treatment provided - N/A Reason no statin at D/C: Treatment provided - N/A Reason no anticoag w/a fib: Treatment not indicated VTE Core Measure Inpt VTE Proph given/why not?: Enoxaparin (Lovenox)SQ
--- NOTE | 2017-12-06 15:38 | Pharmacy Progress Note ---
Pharmacist Post D/C Phone Note Date of phone call: Dec 06, 2017. Individual with whom pharmacist spoke to: Patient The following questions were reviewed during the phone call with responses listed below each: Can you tell me the medications that you are currently taking as well as when and how you take each medication? - Medications Dose Route/Sig Max Daily Dose Days Date Category Pantoprazole Sodium (Pantoprazole) 40 Mg Tab 40 Mg PO QAM 12/04/17 Rx Tricor (Fenofibrate) 54 Mg Tab 54 Mg PO DAILY 30 12/04/17 Rx Clopidogrel (Clopidogrel Bisulfate) 75 Mg Tab 75 Mg PO QAM 12/04/17 Rx Soliqua 100/33 100-33 Unt-Mcg/ml (Insulin Glargine-Lixisenatide) 1 Inj Inj 30 Units SQ DAILY 12/04/17 Rx Vitamin B Complex-C (B Complex W/ C) 1 Cap Cap 1 Cap PO DAILY 12/02/17 Reported Chelated Magnesium (Magnesium) 100 Mg Tab 100 Mg PO DAILY 12/02/17 Reported Glucophage Ext Rel (Metformin Hcl) 1,000 Mg Tab 1,000 Mg PO BID 12/02/17 Reported Prinivil (Lisinopril) 5 Mg Tab Patient reports this is 20 mg - waiting to confirm with Dr. Phillips's office 5 Mg PO DAILY 12/02/17 Reported Glimepiride 4 Mg Tab Patient reports Dr. Phillips told her to stop awhile ago 8 Mg PO DAILY 12/02/17 Reported Vitamin D3 (Cholecalciferol) 5,000 Unit Tab 5,000 Unit PO DAILY 12/02/17 Reported Lipitor (Atorvastatin Calcium) 80 Mg Tab 80 Mg PO DAILY 12/02/17 Reported Aspirin 81 (Aspirin) 81 Mg Tab 81 Mg PO DAILY 12/02/17 Reported When have you missed any doses of your medications? - No missed doses What side effects are you having from your medications? - A bad sinus headache today but does not think this is related to any kind of infection. She said she has had this before. Asked what she could take for it - I advised her to take APAP and stay away from ibuprofen, naproxen, etc. She typically only takes APAP. I also advised her to contact her PCP if it continues, in case she should be seen sooner. What questions do you have about your medications? - No questions What problems are you having obtaining your medications? - None When is your next appointment with your primary care doctor? - Wednesday AM with Dr. Phillips Additional comments: - Med changes as per patient are noted above. I am waiting to hear back from Dr. Phillips's office regarding her lisinopril dose. This is significantly different from the dose on her med rec and as per outpatient fill history but she was reading it to me from a prescription bottle she had at home. As per the Pharmacist Discharge Counseling for Stroke Patients Protocol, this phone call has been completed within 72 hours of discharge. Thank you for allowing us to be involved in the care of this patient.
== END 2017-12-04 16:40 | disposition home or self-care (01) | DRG 65 ==
LOC: INTOOBSV 01:15 → C.2T 01:15 → OBSVTOIN 15:40
PROVIDERS: ADMIT Internal Medicine; ATTEND Internal Medicine
DX: I63.8 Other cerebral infarction (principal); N17.9 Acute kidney failure, unspecified; R47.81 Slurred speech; R20.0 Anesthesia of skin; T39.016A Underdosing of aspirin, initial encounter; Z91.128 Patient's intentional underdosing of medication regimen for other reason; N26.1 Atrophy of kidney (terminal); I10 Essential (primary) hypertension; E78.5 Hyperlipidemia, unspecified; E11.65 Type 2 diabetes mellitus with hyperglycemia; I34.1 Nonrheumatic mitral (valve) prolapse; K58.0 Irritable bowel syndrome with diarrhea; E66.9 Obesity, unspecified; Z68.37 Body mass index [BMI] 37.0-37.9, adult; Z79.82 Long term (current) use of aspirin; Z79.4 Long term (current) use of insulin; Z79.899 Other long term (current) drug therapy